=== PATIENT | female | born 1980 | race Asian ===

== ENCOUNTER 2021-03-17 04:05 | Emergency (ER) | payer SELFPAY ==
[~2021-03-17] VITALS: Ht 162.6 cm; Wt 63.0 kg
[2021-03-17] MEDS ORDERED: FLUORESCEIN SOD(OPTH) 1 MG STRP ONE (04:31)
[2021-03-17] MEDS ORDERED: CYCLOPENTOLATE HCL 1% OPTH SOLN 2ML BTL ONE (04:33)
[2021-03-17] MEDS ORDERED: TETRACAINE HCL 0.5% OPTH SOLN 4 ML BTL ONE (04:34)
[2021-03-17 04:40] VITALS: BP 135/79
== END 2021-03-17 04:40 | disposition home or self-care (01) ==
LOC: FSED 04:35
DX: H10.9 Unspecified conjunctivitis (principal)
CPT/HCPCS: 99283